=== PATIENT | male | born 1995 | race Caucasian/White ===

== ENCOUNTER 2018-07-08 20:50 | Emergency (ER) | payer OTHER ==
[~2018-07-08] VITALS: Ht 172.7 cm; Wt 79.4 kg
[2018-07-08 22:20] VITALS: BP 122/68
== END 2018-07-08 22:20 | disposition home or self-care (01) ==
LOC: M.ERS 20:50
DX: S60.221A Contusion of right hand, initial encounter (principal); W23.1XXA Caught, crushed, jammed, or pinched between stationary objects, initial encounter; Y92.89 Other specified places as the place of occurrence of the external cause; Y93.89 Activity, other specified; Y99.8 Other external cause status

== ENCOUNTER 2019-04-03 04:27 | Emergency (ER) | payer OTHER ==
[~2019-04-03] VITALS: Ht 172.7 cm; Wt 81.7 kg
[2019-04-03 05:26] LABS: URINE BILIRUBIN NEGATIVE (Negative); URINE BLOOD NEGATIVE (Negative); URINE CLARITY CLEAR; URINE COLOR YELLOW; URINE GLUCOSE-RANDOM NEGATIVE (Negative); URINE KETONES TR (Negative); URINE NITRITE-REFLEX NEGATIVE (Negative); URINE PROTEIN NEGATIVE (Negative)
[2019-04-03 05:27] LABS: URINE LEUKOCYTES-REFLEX NEGATIVE (Negative); URINE UROBILINOGEN 0.2 E.U./dl (0.2-1.0)
[2019-04-03 08:45] VITALS: BP 124/76
== END 2019-04-03 08:46 | disposition still patient (30) ==
LOC: M.ERS 04:27
PROVIDERS: Personal Emergency Response Attendant
DX: N50.812 Left testicular pain (principal); R10.32 Left lower quadrant pain

== ENCOUNTER → 2019-09-16 | Outpatient (CLI) | payer OTHER | LOC: M.RAD 11:50 | PROVIDERS: ATTEND Internal Medicine | DX: M54.41 Lumbago with sciatica, right side (principal); M25.551 Pain in right hip; R31.0 Gross hematuria ==

== ENCOUNTER 2020-04-02 16:56 | Emergency (ER) | payer OTHER ==
[~2020-04-02] VITALS: Ht 170.2 cm; Wt 81.7 kg
[2020-04-02] MEDS ORDERED: IBUPROFEN 800800 M1 PO (19:02)
[2020-04-02 19:24] VITALS: BP 128/75
== END 2020-04-02 19:25 | disposition home or self-care (01) ==
LOC: M.ERS 16:56
DX: S16.1XXA Strain of muscle, fascia and tendon at neck level, initial encounter (principal); S40.021A Contusion of right upper arm, initial encounter; S09.90XA Unspecified injury of head, initial encounter; V86.59XA Driver of other special all-terrain or other off-road motor vehicle injured in nontraffic accident, initial encounter; Y93.55 Activity, bike riding; Y92.413 State road as the place of occurrence of the external cause; Y99.9 Unspecified external cause status